=== PATIENT | female | born 1955 | race Caucasian/White ===

== ENCOUNTER 2018-12-23 16:44 | Emergency (ER) | payer OTHER ==
[2018-12-23] MEDS ORDERED: Adacel (T-DAP) 0.5 ML SYRINGE ONE (16:59)
[2018-12-23] MEDS ORDERED: Bacitracin Zinc 1 Packet ONE (17:17)
== END 2018-12-23 17:30 | disposition home or self-care (01) ==
LOC: BURERS 16:44
DX: S61.412A Laceration without foreign body of left hand, initial encounter (principal); E03.9 Hypothyroidism, unspecified; F41.9 Anxiety disorder, unspecified; Z79.899 Other long term (current) drug therapy; W55.03XA Scratched by cat, initial encounter
CPT/HCPCS: 12002; 90471; 90715

== ENCOUNTER 2019-09-12 11:20 | Emergency (ER) | payer OTHER | END 2019-09-12 12:00 | disposition home or self-care (01) | LOC: BURERS 11:20 | DX: K57.92 Diverticulitis of intestine, part unspecified, without perforation or abscess without bleeding (principal); E03.9 Hypothyroidism, unspecified; E05.00 Thyrotoxicosis with diffuse goiter without thyrotoxic crisis or storm; F41.9 Anxiety disorder, unspecified; Z79.899 Other long term (current) drug therapy | CPT/HCPCS: 99283 ==

== ENCOUNTER 2022-06-17 12:02 | Emergency (ER) | payer MEDICARE, OTHER ==
[2022-06-17] MEDS ORDERED: Iopamidol 370 76% 100 ML VIAL FS ONE (12:03)
[2022-06-17] MEDS ORDERED: Nitroglycerin 0.4 MG TAB 1 EACH ONE (12:31)
[2022-06-17 12:52] LABS: #Basophils 0.1 thou/uL (0.0-0.2); #Eosinphils 0.3 thou/uL (0.0-0.7); #Lymphocytes 1.5 thou/uL (1.20-3.40); #Monocytes 0.4 thou/uL (0.11-0.59); #Neutrophils 3.4 thou/uL (1.40-6.50); %Basophils 1.4 % (0.0-1.0); %Eosinophils 4.5 % (0.0-10.0); %Lymphocytes 26.5 % (21.0-51.0); %Monocytes 7.3 % (0.0-10.0); %Neutrophils 60.3 % (42.0-75.0); Hemoglobin 14.3 g/dL (12.0-16.0); Mean Corpuscular HGB CONC 34.5 g/dL (32.0-36.0); Mean Corpuscular Hemoglobin 32.6 pg (27.0-31.0); Mean Corpuscular Volume 94.7 fL (78.0-98.0); Mean Platelet Volume 7.3 fL (7.4-10.4); Platelet Count 241 thou/uL (130-400); RBC Distribution Width 11.3 % (11.5-14.5); Red Blood Cell (RBC) Count 4.37 mill/uL (4.20-5.40); White Blood Cell (WBC) Count 5.7 thou/uL (4.8-10.8)
[2022-06-17 13:27] LABS: Base Excess-Venous 0.2 mmol/L (-2.0 to 3.0); Bicarbonate (HCO3v) 24.2 mmol/L (22.0-28.0); CO2 Tension (PvCO2) 36.3 mmHg (42.0-51.0); vO2 Saturation-calc 96.1 % (60.0-85.0)
[2022-06-17 13:28] LABS: Calcium, Ionized 1.08 mmol/L (1.15-1.33); Hemoglobin - Calc 13.7 g/dL (12.0-16.0); Potassium 3.9 mmol/L (3.5-5.1); Sodium 141 mmol/L (138-145); T. Carbon Dioxide 25.3 mmol/L (22.0-28.0)
[2022-06-17 13:38] LABS: ALT (SGPT) 74 U/L (8-55); AST (SGOT) 50 U/L (5-34); Alkaline Phosphatase 386 U/L (40-110); Anion Gap 14 mmol/L (10-20); BUN (Urea Nitrogen) 14 mg/dL (9.8-20.1); Bilirubin, Total 0.8 mg/dL (0.2-1.2); Calc. Creatinine Clearance 0 mL/min (70-130); Calcium 9.3 mg/dL (7.8-10.44); Carbon Dioxide 23 mmol/L (23-31); Chloride 107 mmol/L (98-107); Estimated GFR 96; Globulin 2.9 g/dL (2.4-3.5); Glucose 78 mg/dL (80-115); Lipase 25 U/L (8-78); Protein, Total 6.9 g/dL (5.8-8.1); Sodium 140 mmol/L (136-145)
[2022-06-17] MEDS ORDERED: Mag-Al Plus 1200 MG/1200 MG/120 MG/30 ML UDCUP ONE (13:41)
[2022-06-17] MEDS ORDERED: Aspirin Chewable 81 MG TAB ONE (13:41)
[2022-06-17] MEDS ORDERED: Lidocaine Viscous Sol 2% 15 ml UD Cup ONE (13:41)
== END 2022-06-17 14:05 | disposition home or self-care (01) ==
LOC: BURERS 12:02
DX: R10.12 Left upper quadrant pain (principal); E03.9 Hypothyroidism, unspecified; Z79.899 Other long term (current) drug therapy
CPT/HCPCS: 36415; 71045; 74177; 80053; 82330; 82803; 83690; 84484; 85025; 93005; Q9967

== ENCOUNTER 2022-06-18 06:23 | Emergency (ER) | payer MEDICARE, OTHER ==
[2022-06-18] MEDS ORDERED: Nitroglycerin 0.4 MG TAB 1 EACH ONE (06:34)
[2022-06-18 06:50] LABS: #Basophils 0.1 thou/uL (0.0-0.2); #Eosinphils 0.3 thou/uL (0.0-0.7); #Lymphocytes 1.8 thou/uL (1.20-3.40); #Monocytes 0.4 thou/uL (0.11-0.59); #Neutrophils 3.9 thou/uL (1.40-6.50); %Eosinophils 4.2 % (0.0-10.0); %Lymphocytes 28.2 % (21.0-51.0); %Monocytes 6.2 % (0.0-10.0); %Neutrophils 60.4 % (42.0-75.0); Hemoglobin 15.7 g/dL (12.0-16.0); Mean Corpuscular HGB CONC 34.5 g/dL (32.0-36.0); Mean Corpuscular Hemoglobin 32.6 pg (27.0-31.0); Mean Corpuscular Volume 94.4 fL (78.0-98.0); Mean Platelet Volume 8.1 fL (7.4-10.4); Platelet Count 247 thou/uL (130-400); RBC Distribution Width 11.3 % (11.5-14.5); Red Blood Cell (RBC) Count 4.82 mill/uL (4.20-5.40); White Blood Cell (WBC) Count 6.5 thou/uL (4.8-10.8)
[2022-06-18] MEDS ORDERED: Morphine 4 MG/ML VIAL ONE (06:51)
[2022-06-18] MEDS ORDERED: Ondansetron PF 4 MG/2 ML Vial ONE (06:51)
[2022-06-18 07:07] LABS: ALT (SGPT) 96 U/L (8-55); AST (SGOT) 73 U/L (5-34); Albumin 4.2 g/dL (3.4-4.8); Alkaline Phosphatase 433 U/L (40-110); Anion Gap 15 mmol/L (10-20); BUN (Urea Nitrogen) 13 mg/dL (9.8-20.1); Bilirubin, Total 0.8 mg/dL (0.2-1.2); Calc. Creatinine Clearance 0 mL/min (70-130); Calcium 9.5 mg/dL (7.8-10.44); Carbon Dioxide 24 mmol/L (23-31); Chloride 104 mmol/L (98-107); Estimated GFR 86; Globulin 3.2 g/dL (2.4-3.5); Glucose 100 mg/dL (80-115); Lipase 24 U/L (8-78); Potassium 4.2 mmol/L (3.5-5.1); Protein, Total 7.4 g/dL (5.8-8.1); Sodium 139 mmol/L (136-145)
[2022-06-18] MEDS ORDERED: Aspirin Chewable 81 MG TAB ONE (08:14)
[2022-06-18] MEDS ORDERED: Fentanyl 100 MCG/2 ML VIAL ONE (08:14)
== END 2022-06-18 10:25 | disposition short-term general hospital (02) ==
LOC: BURERS 06:23
DX: R07.89 Other chest pain (principal); R74.01 Elevation of levels of liver transaminase levels
CPT/HCPCS: 71045; 80053; 83690; 84484; 85025; 85379; 93005; 96374; 96375; J2270; J2405; J3010

== ENCOUNTER 2023-01-20 10:42 | Emergency (ER) | payer MEDICARE, OTHER ==
[2023-01-20] MEDS ORDERED: Lidocaine 1%/Epinephrine 1:100K 10 ML VIAL ONE (11:11)
[2023-01-20] MEDS ORDERED: Penicillin V Potassium 250 MG TAB ONE (11:30)
[2023-01-20] MEDS ORDERED: HYDROcodone/Acetaminophen 5/325 mg Tablet ONE (11:31)
== END 2023-01-20 11:36 | disposition home or self-care (01) ==
LOC: BURERS 10:42
DX: K08.89 Other specified disorders of teeth and supporting structures (principal); E03.9 Hypothyroidism, unspecified
CPT/HCPCS: 96372; 99282

== ENCOUNTER 2024-07-01 14:17 | Emergency (ER) | payer MEDICARE, OTHER | END 2024-07-01 15:02 | disposition home or self-care (01) | LOC: BURERS 14:17 | DX: S61.012A Laceration without foreign body of left thumb without damage to nail, initial encounter (principal); W26.0XXA Contact with knife, initial encounter | CPT/HCPCS: 12001; 99282 ==